=== PATIENT | female | born 1960 | race Two or more races ===

== ENCOUNTER 2022-02-12 23:41 | Emergency (ER) | payer OTHER ==
[~2022-02-12] VITALS: Ht 167.6 cm; Wt 59.0 kg
[2022-02-13] MEDS ORDERED: KETO10TA2 PO (01:40)
[2022-02-13] MEDS ORDERED: CIPRO500 MG PO (01:40)
[2022-02-13] MEDS ORDERED: FLUCONAZOLE150 MG PO (01:56)
== END 2022-02-13 02:52 | disposition home or self-care (01) ==
LOC: ER 23:41
DX: S90.222A Contusion of left lesser toe(s) with damage to nail, initial encounter (principal); X58.XXXA Exposure to other specified factors, initial encounter; Y93.9 Activity, unspecified; Y92.9 Unspecified place or not applicable; Y99.9 Unspecified external cause status